=== PATIENT | female | born 1945 | race Caucasian/White ===

== ENCOUNTER 2023-06-30 22:18 | Inpatient (IN) | payer MEDICARE ==
[2023-06-30 23:12] LABS: #Eosinphils 0.1 thou/uL (0.0-0.7); #Monocytes 0.8 thou/uL (0.11-0.59); #Neutrophils 6.1 thou/uL (1.40-6.50); %Basophils 0.5 % (0.0-1.0); %Eosinophils 0.9 % (0.0-10.0); %Lymphocytes 13.5 % (21.0-51.0); %Monocytes 10.2 % (0.0-10.0); %Neutrophils 74.4 % (42.0-75.0); Hematocrit 39.9 % (36.0-47.0); Hemoglobin 12.8 g/dL (12.0-16.0); Mean Corpuscular HGB CONC 32.1 g/dL (32.0-36.0); Mean Corpuscular Hemoglobin 32.3 pg (27.0-31.0); Mean Corpuscular Volume 100.8 fl (78.0-98.0); Mean Platelet Volume 9.5 fL (7.4-10.4); Platelet Count 273 10x3/uL (130-400); RBC Distribution Width 13.5 % (11.5-14.5); Red Blood Cell (RBC) Count 3.96 mill/uL (4.20-5.40); White Blood Cell (WBC) Count 8.2 10x3/uL (4.8-10.8)
[2023-06-30 23:39] LABS: ALT (SGPT) 14 U/L (8-55); AST (SGOT) 23 U/L (5-34); Albumin 3.8 g/dL (3.4-4.8); Alkaline Phosphatase 104 U/L (40-110); Anion Gap 14 mmol/L (10-20); BUN (Urea Nitrogen) 11 mg/dL (9.8-20.1); Bilirubin, Total 0.5 mg/dL (0.2-1.2); Calc. Creatinine Clearance 0 mL/min (70-130); Calcium 9.2 mg/dL (7.8-10.44); Carbon Dioxide 23 mmol/L (23-31); Chloride 102 mmol/L (98-107); Estimated GFR 75; Globulin 2.9 g/dL (2.4-3.5); Glucose 139 mg/dL (83-110); Potassium 4.4 mmol/L (3.5-5.1); Protein, Total 6.7 g/dL (5.8-8.1); Sodium 135 mmol/L (136-145)
[2023-06-30 23:41] LABS: Troponin I Less than 0.010 ng/mL (< 0.028)
[2023-07-01 01:52] LABS: Troponin I 0.018 ng/mL (< 0.028)
[2023-07-01] MEDS ORDERED: Acetaminophen 500 MG TAB ONE (01:52)
[2023-07-01] MEDS ORDERED: Acetaminophen 325 MG TAB PO PRN (02:00)
[2023-07-01] MEDS ORDERED: Ondansetron ODT 4 MG TAB SL PRN (02:00)
[2023-07-01] MEDS ORDERED: Ondansetron PF 4 MG/2 ML Vial IVP PRN (02:00)
[2023-07-01] MEDS ORDERED: Acetaminophen 650 MG Suppository PR PRN (02:48)
[2023-07-01] MEDS ORDERED: Nitroglycerin 0.4 MG TAB (25 Tab Bottle) SL PRN (02:48)
[2023-07-01 03:25] VITALS: BMI 33.0
[2023-07-01] MEDS ORDERED: hydrALAZINE 20 MG/ML VIAL SLOW IVP PRN (03:41)
[2023-07-01] MEDS ORDERED: Pantoprazole 40 MG VIAL IVP SCH (04:30)
[2023-07-01 05:00] LABS: #Eosinphils 0.1 thou/uL (0.0-0.7); #Monocytes 0.7 thou/uL (0.11-0.59); #Neutrophils 4.5 thou/uL (1.40-6.50); %Basophils 0.3 % (0.0-1.0); %Eosinophils 0.7 % (0.0-10.0); %Lymphocytes 19.8 % (21.0-51.0); %Monocytes 10.6 % (0.0-10.0); Hematocrit 38.7 % (36.0-47.0); Hemoglobin 12.7 g/dL (12.0-16.0); Mean Corpuscular HGB CONC 32.8 g/dL (32.0-36.0); Mean Corpuscular Hemoglobin 32.6 pg (27.0-31.0); Mean Corpuscular Volume 99.5 fl (78.0-98.0); Mean Platelet Volume 9.8 fL (7.4-10.4); Platelet Count 261 10x3/uL (130-400); RBC Distribution Width 13.6 % (11.5-14.5); Red Blood Cell (RBC) Count 3.89 mill/uL (4.20-5.40); White Blood Cell (WBC) Count 6.7 10x3/uL (4.8-10.8)
[2023-07-01] MEDS: Morphine 4 MG/ML VIAL SLOW IVP PRN ×3 (05:16→16:33)
[2023-07-01 05:27] LABS: Anion Gap 14 mmol/L (10-20); BUN (Urea Nitrogen) 8 mg/dL (9.8-20.1); Calc. Creatinine Clearance 96 mL/min (70-130); Calcium 9.4 mg/dL (7.8-10.44); Carbon Dioxide 24 mmol/L (23-31); Chloride 103 mmol/L (98-107); Estimated GFR 89; Glucose 101 mg/dL (83-110); Sodium 137 mmol/L (136-145)
[2023-07-01 05:32] LABS: Troponin I 0.054 ng/mL (< 0.028)
[2023-07-01] MEDS ORDERED: Levothyroxine Sodium 100 MCG TAB PO SCH ×2 (06:30→09:00)
[2023-07-01 08:25] LABS: Troponin I 0.051 ng/mL (< 0.028)
[2023-07-01] MEDS: Clopidogrel Bisulfate 75 MG TAB PO SCH (08:41)
[2023-07-01] MEDS: Carvedilol 6.25 MG TAB PO SCH ×2 (08:41→21:01)
[2023-07-01] MEDS: Atorvastatin Calcium 40 MG TAB PO SCH (08:43)
[2023-07-01] MEDS: Aspirin Chewable 81 MG TAB PO SCH (08:45)
[2023-07-01] MEDS ORDERED: Isosorbide Mononitrate 30 MG ER.TAB PO SCH (09:00)
[2023-07-01] MEDS ORDERED: Polyethylene Glycol 3350 17 GM Packet PO PRN (10:44)
[2023-07-01] MEDS ORDERED: Electrolyte Replacement Protocol 1 EACH FS SCH (11:00)
[2023-07-01 13:00] LABS: Troponin I 0.041 ng/mL (< 0.028)
[2023-07-01] MEDS: Zolpidem Tartrate 5 MG TAB PO PRN (21:00)
[2023-07-01] MEDS ORDERED: Non-Formulary Item 1 EACH (Zolpidem Tartrate [Ambien] 10 MG Tablet) PO SCH (21:00)
[2023-07-01] MEDS: Ranolazine 500 MG ER.TAB PO SCH (21:01)
[2023-07-02 04:40] LABS: #Eosinphils 0.1 thou/uL (0.0-0.7); #Monocytes 0.8 thou/uL (0.11-0.59); #Neutrophils 3.2 thou/uL (1.40-6.50); %Basophils 0.7 % (0.0-1.0); %Eosinophils 1.8 % (0.0-10.0); %Lymphocytes 23.6 % (21.0-51.0); %Monocytes 14.5 % (0.0-10.0); %Neutrophils 58.9 % (42.0-75.0); Hematocrit 38.6 % (36.0-47.0); Hemoglobin 12.4 g/dL (12.0-16.0); Mean Corpuscular HGB CONC 32.1 g/dL (32.0-36.0); Mean Corpuscular Hemoglobin 32.1 pg (27.0-31.0); Mean Platelet Volume 9.9 fL (7.4-10.4); Platelet Count 237 10x3/uL (130-400); RBC Distribution Width 13.9 % (11.5-14.5); Red Blood Cell (RBC) Count 3.86 mill/uL (4.20-5.40); White Blood Cell (WBC) Count 5.5 10x3/uL (4.8-10.8)
[2023-07-02 04:59] LABS: Anion Gap 12 mmol/L (10-20); BUN (Urea Nitrogen) 12 mg/dL (9.8-20.1); Calc. Creatinine Clearance 80 mL/min (70-130); Calcium 8.9 mg/dL (7.8-10.44); Carbon Dioxide 27 mmol/L (23-31); Chloride 102 mmol/L (98-107); Estimated GFR 74; Glucose 100 mg/dL (83-110); Potassium 3.7 mmol/L (3.5-5.1); Sodium 137 mmol/L (136-145)
[2023-07-02] MEDS: Levothyroxine Sodium 100 MCG TAB PO SCH (06:14)
[2023-07-02] MEDS ORDERED: Regadenoson 0.4 MG/5 ML SYRINGE ONE (08:50)
[2023-07-02] MEDS ORDERED: Polyethylene Glycol 3350 17 GM Packet PO SCH (09:00)
[2023-07-02] MEDS ORDERED: CYANOCOBALAMIN 50 MCG PO SCH (09:00)
[2023-07-02] MEDS: Ascorbic Acid 500 mg Chewable Tablet PO SCH (11:40)
[2023-07-02] MEDS: Clopidogrel Bisulfate 75 MG TAB PO SCH (11:40)
[2023-07-02] MEDS: Cholecalciferol 1,000 UNITS (25 MCG) TAB PO SCH (11:41)
[2023-07-02] MEDS: Aspirin Chewable 81 MG TAB PO SCH (11:41)
[2023-07-02] MEDS: Escitalopram Oxalate 10 mg Tablet PO SCH (11:41)
[2023-07-02] MEDS: Atorvastatin Calcium 40 MG TAB PO SCH (11:41)
[2023-07-02] MEDS: Carvedilol 6.25 MG TAB PO SCH ×2 (11:41→20:40)
[2023-07-02] MEDS: Ranolazine 500 MG ER.TAB PO SCH ×2 (11:41→20:40)
[2023-07-02] MEDS: Pantoprazole 40 MG VIAL IVP SCH (11:42)
[2023-07-02] MEDS: Zolpidem Tartrate 5 MG TAB PO PRN (20:40)
[2023-07-03] MEDS: Levothyroxine Sodium 100 MCG TAB PO SCH (05:32)
[2023-07-03] MEDS: Carvedilol 6.25 MG TAB PO SCH (09:00)
[2023-07-03] MEDS ORDERED: Carvedilol 6.25 MG TAB PO SCH (09:04)
[2023-07-03] MEDS: Ascorbic Acid 500 mg Chewable Tablet PO SCH (10:07)
[2023-07-03] MEDS: Atorvastatin Calcium 40 MG TAB PO SCH (10:07)
[2023-07-03] MEDS: Carvedilol 25 MG TAB PO SCH ×2 (10:07→20:38)
[2023-07-03] MEDS: Aspirin Chewable 81 MG TAB PO SCH ×2 (10:08→10:23)
[2023-07-03] MEDS: Clopidogrel Bisulfate 75 MG TAB PO SCH (10:08)
[2023-07-03] MEDS: Escitalopram Oxalate 10 mg Tablet PO SCH (10:08)
[2023-07-03] MEDS: Cholecalciferol 1,000 UNITS (25 MCG) TAB PO SCH (10:08)
[2023-07-03] MEDS: Pantoprazole 40 MG VIAL IVP SCH (10:09)
[2023-07-03] MEDS: Ranolazine 500 MG ER.TAB PO SCH ×2 (10:09→20:38)
[2023-07-03] MEDS: Zolpidem Tartrate 5 MG TAB PO PRN (20:39)
[2023-07-04] MEDS: Levothyroxine Sodium 100 MCG TAB PO SCH (05:48)
[2023-07-04] MEDS: Pantoprazole 40 MG VIAL IVP SCH (08:43)
[2023-07-04] MEDS: Atorvastatin Calcium 40 MG TAB PO SCH (08:46)
[2023-07-04] MEDS: Clopidogrel Bisulfate 75 MG TAB PO SCH (08:47)
[2023-07-04] MEDS: Escitalopram Oxalate 10 mg Tablet PO SCH (08:47)
[2023-07-04] MEDS: Ascorbic Acid 500 mg Chewable Tablet PO SCH (08:47)
[2023-07-04] MEDS: Cholecalciferol 1,000 UNITS (25 MCG) TAB PO SCH (08:47)
[2023-07-04] MEDS: Aspirin Chewable 81 MG TAB PO SCH (08:47)
[2023-07-04] MEDS: Ranolazine 500 MG ER.TAB PO SCH ×2 (08:47→20:57)
[2023-07-04] MEDS: Carvedilol 25 MG TAB PO SCH ×2 (08:47→20:57)
[2023-07-04] MEDS ORDERED: NIFEdipine XL 30 MG ER.TAB PO SCH (12:45)
[2023-07-04] MEDS: Zolpidem Tartrate 5 MG TAB PO PRN (20:57)
[2023-07-05 04:18] LABS: #Eosinphils 0.1 thou/uL (0.0-0.7); #Monocytes 0.6 thou/uL (0.11-0.59); #Neutrophils 3.7 thou/uL (1.40-6.50); %Basophils 0.5 % (0.0-1.0); %Eosinophils 1.6 % (0.0-10.0); %Lymphocytes 20.1 % (21.0-51.0); %Monocytes 11.4 % (0.0-10.0); Hematocrit 39.6 % (36.0-47.0); Hemoglobin 12.5 g/dL (12.0-16.0); Mean Corpuscular HGB CONC 31.6 g/dL (32.0-36.0); Mean Corpuscular Hemoglobin 32.3 pg (27.0-31.0); Mean Corpuscular Volume 102.3 fl (78.0-98.0); Mean Platelet Volume 9.9 fL (7.4-10.4); Platelet Count 191 10x3/uL (130-400); RBC Distribution Width 13.5 % (11.5-14.5); Red Blood Cell (RBC) Count 3.87 mill/uL (4.20-5.40); White Blood Cell (WBC) Count 5.5 10x3/uL (4.8-10.8)
[2023-07-05 04:59] LABS: Anion Gap 12 mmol/L (10-20); BUN (Urea Nitrogen) 13 mg/dL (9.8-20.1); Calc. Creatinine Clearance 94 mL/min (70-130); Calcium 8.8 mg/dL (7.8-10.44); Carbon Dioxide 25 mmol/L (23-31); Chloride 106 mmol/L (98-107); Estimated GFR 88; Glucose 96 mg/dL (83-110); Potassium 3.6 mmol/L (3.5-5.1); Sodium 139 mmol/L (136-145)
[2023-07-05] MEDS: Levothyroxine Sodium 100 MCG TAB PO SCH (05:44)
[2023-07-05] MEDS: Pantoprazole 40 MG VIAL IVP SCH (08:46)
[2023-07-05] MEDS: Carvedilol 25 MG TAB PO SCH ×2 (08:50→21:14)
[2023-07-05] MEDS: Escitalopram Oxalate 10 mg Tablet PO SCH (08:50)
[2023-07-05] MEDS: Cholecalciferol 1,000 UNITS (25 MCG) TAB PO SCH (08:50)
[2023-07-05] MEDS: Clopidogrel Bisulfate 75 MG TAB PO SCH (08:50)
[2023-07-05] MEDS: Atorvastatin Calcium 40 MG TAB PO SCH (08:50)
[2023-07-05] MEDS: Ranolazine 500 MG ER.TAB PO SCH ×2 (08:50→21:14)
[2023-07-05] MEDS: Aspirin Chewable 81 MG TAB PO SCH (08:50)
[2023-07-05] MEDS: Ascorbic Acid 500 mg Chewable Tablet PO SCH (08:50)
[2023-07-05] MEDS ORDERED: NIFEdipine XL 30 MG ER.TAB PO SCH ×2 (09:00→13:15)
[2023-07-05] MEDS: Acetaminophen 325 MG TAB PO PRN (09:27)
[2023-07-05] MEDS: Guaifenesin DM 100-10/5 ML UDCUP PO PRN ×2 (15:56→23:21)
[2023-07-05] MEDS: Zolpidem Tartrate 5 MG TAB PO PRN (21:32)
[2023-07-06] MEDS: Guaifenesin DM 100-10/5 ML UDCUP PO PRN ×3 (05:07→14:45)
[2023-07-06] MEDS: Levothyroxine Sodium 100 MCG TAB PO SCH (05:07)
[2023-07-06 05:26] LABS: #Monocytes 0.6 thou/uL (0.11-0.59); #Neutrophils 3.6 thou/uL (1.40-6.50); %Basophils 0.4 % (0.0-1.0); %Eosinophils 0.4 % (0.0-10.0); %Monocytes 12.8 % (0.0-10.0); %Neutrophils 80.2 % (42.0-75.0); Hematocrit 37.7 % (36.0-47.0); Hemoglobin 12.1 g/dL (12.0-16.0); Mean Corpuscular HGB CONC 32.1 g/dL (32.0-36.0); Mean Corpuscular Hemoglobin 32.3 pg (27.0-31.0); Mean Corpuscular Volume 100.5 fl (78.0-98.0); Mean Platelet Volume 10.3 fL (7.4-10.4); Platelet Count 193 10x3/uL (130-400); RBC Distribution Width 13.8 % (11.5-14.5); Red Blood Cell (RBC) Count 3.75 mill/uL (4.20-5.40); White Blood Cell (WBC) Count 4.5 10x3/uL (4.8-10.8)
[2023-07-06 05:53] LABS: Anion Gap 13 mmol/L (10-20); BUN (Urea Nitrogen) 10 mg/dL (9.8-20.1); Calc. Creatinine Clearance 88 mL/min (70-130); Calcium 8.6 mg/dL (7.8-10.44); Carbon Dioxide 25 mmol/L (23-31); Chloride 102 mmol/L (98-107); Estimated GFR 82; Glucose 96 mg/dL (83-110); Potassium 3.6 mmol/L (3.5-5.1); Sodium 136 mmol/L (136-145)
[2023-07-06] MEDS: Ascorbic Acid 500 mg Chewable Tablet PO SCH (08:59)
[2023-07-06] MEDS: NIFEdipine XL 60 MG ER.TAB PO SCH (08:59)
[2023-07-06] MEDS: Aspirin Chewable 81 MG TAB PO SCH (08:59)
[2023-07-06] MEDS: Escitalopram Oxalate 10 mg Tablet PO SCH (08:59)
[2023-07-06] MEDS: Pantoprazole 40 MG VIAL IVP SCH (08:59)
[2023-07-06] MEDS: Cholecalciferol 1,000 UNITS (25 MCG) TAB PO SCH (08:59)
[2023-07-06] MEDS: Ranolazine 500 MG ER.TAB PO SCH ×2 (08:59→20:32)
[2023-07-06] MEDS: Clopidogrel Bisulfate 75 MG TAB PO SCH (08:59)
[2023-07-06] MEDS: Carvedilol 25 MG TAB PO SCH ×2 (09:00→20:32)
[2023-07-06] MEDS: Atorvastatin Calcium 40 MG TAB PO SCH (09:00)
[2023-07-06] MEDS ORDERED: Electrolyte Replacement Protocol FS PRN (13:00)
[2023-07-06] MEDS ORDERED: Sodium Chloride 0.9% 1,000 ML IV SCH (20:00)
[2023-07-06] MEDS ORDERED: Communication Order-Pharmacy FS SCH (20:00)
[2023-07-06] MEDS: Acetaminophen 325 MG TAB PO PRN (20:32)
[2023-07-06] MEDS: Zolpidem Tartrate 5 MG TAB PO PRN (20:35)
[2023-07-07 04:37] LABS: Hematocrit 36.2 % (36.0-47.0); Hemoglobin 11.9 g/dL (12.0-16.0); Manual Diff?? YES; Mean Corpuscular HGB CONC 32.9 g/dL (32.0-36.0); Mean Corpuscular Hemoglobin 32.5 pg (27.0-31.0); Mean Corpuscular Volume 98.9 fl (78.0-98.0); Mean Platelet Volume 9.6 fL (7.4-10.4); Platelet Count 135 10x3/uL (130-400); RBC Distribution Width 13.7 % (11.5-14.5); Red Blood Cell (RBC) Count 3.66 mill/uL (4.20-5.40)
[2023-07-07 04:40] LABS: Delete Auto Diff?? YES
[2023-07-07 05:00] LABS: Phosphorus 3.8 mg/dL (2.3-4.7)
[2023-07-07 05:02] LABS: Anion Gap 11 mmol/L (10-20); BUN (Urea Nitrogen) 9 mg/dL (9.8-20.1); Calc. Creatinine Clearance 97 mL/min (70-130); Calcium 8.4 mg/dL (7.8-10.44); Carbon Dioxide 24 mmol/L (23-31); Chloride 103 mmol/L (98-107); Estimated GFR 89; Glucose 99 mg/dL (83-110); Magnesium 1.9 mg/dL (1.6-2.6); Potassium 3.2 mmol/L (3.5-5.1); Sodium 135 mmol/L (136-145)
[2023-07-07] MEDS ORDERED: Sodium Chloride 0.9% 1,000 ML IV SCH (06:00)
[2023-07-07] MEDS: Ranolazine 500 MG ER.TAB PO SCH (06:17)
[2023-07-07] MEDS: Aspirin Chewable 81 MG TAB PO SCH (06:17)
[2023-07-07] MEDS: Carvedilol 25 MG TAB PO SCH (06:18)
[2023-07-07] MEDS: Ascorbic Acid 500 mg Chewable Tablet PO SCH (06:18)
[2023-07-07] MEDS: Clopidogrel Bisulfate 75 MG TAB PO SCH (06:18)
[2023-07-07] MEDS: Levothyroxine Sodium 100 MCG TAB PO SCH (06:18)
[2023-07-07] MEDS: Atorvastatin Calcium 40 MG TAB PO SCH (06:18)
[2023-07-07] MEDS: Cholecalciferol 1,000 UNITS (25 MCG) TAB PO SCH (06:18)
[2023-07-07] MEDS: Escitalopram Oxalate 10 mg Tablet PO SCH (06:18)
[2023-07-07] MEDS: Pantoprazole 40 MG VIAL IVP SCH (06:20)
[2023-07-07] MEDS: NIFEdipine XL 60 MG ER.TAB PO SCH (06:22)
[2023-07-07 06:23] LABS: Anisocytosis SLIGHT = 6-15 cells HPF (0-5); Band 1 % (5-11); CellaVision Operator ID LAB.JMM; Large Platelets 3.1 % (0-5); Lymphocytes 9 % (21-51); Macrocytosis SLIGHT = 6-15 cells HPF (0-5); Monocytes 17 % (0-10); Neutrophil 73 % (42-75); Ovalocytes SLIGHT = 2-5 cells HPF (0-1); Platelet Adequacy Comment Platelets Normal; Polychromasia SLIGHT = 2-3 cells HPF (0-2); Smudge Cells 21.4 %; Total Cell Count 98
[2023-07-07] MEDS ORDERED: Magnesium 2 GM/50 ML(in water) 2 GM in Premix 1 BAG IVPB SCH (08:00)
[2023-07-07] MEDS ORDERED: Potassium Chloride 20 MEQ TAB PO SCH (08:00)
[2023-07-07] MEDS ORDERED: Potassium Chloride 20 MEQ in Premix 1 BAG IVPB SCH (08:00)
[2023-07-07] MEDS: Acetaminophen 325 MG TAB PO PRN (09:28)
[2023-07-07 12:34] VITALS: BP 114/58; TEMP 97.6
== END 2023-07-07 12:40 | disposition home or self-care (01) | DRG 282 ==
LOC: ERS 22:18 → 2SW 07-01 01:41 → OBSVTOIN 07-02 16:26
PROVIDERS: ADMIT Student in an Organized Health Care Education/Training Program; ATTEND Internal Medicine Critical Care Medicine
DX: I21.4 Non-ST elevation (NSTEMI) myocardial infarction (principal); I25.10 Atherosclerotic heart disease of native coronary artery without angina pectoris; I10 Essential (primary) hypertension; K21.9 Gastro-esophageal reflux disease without esophagitis; E03.9 Hypothyroidism, unspecified; Z79.899 Other long term (current) drug therapy; E78.5 Hyperlipidemia, unspecified; Z87.891 Personal history of nicotine dependence; Z66 Do not resuscitate; I73.9 Peripheral vascular disease, unspecified; E78.00 Pure hypercholesterolemia, unspecified; Z95.5 Presence of coronary angioplasty implant and graft; J44.9 Chronic obstructive pulmonary disease, unspecified; Z98.890 Other specified postprocedural states; Z79.82 Long term (current) use of aspirin
CPT/HCPCS: 36415; 36416; 70450; 71045; 72125; 78452; 80048; 80053; 83735; 84100; 84484; 85025; 93005; 93010; 93017; 96374; 96375; 96376; A9502; C9113; G0378; J0360; J2270; J2785; J3475; J7050